=== PATIENT | male | born 1995 | race Asian ===

== ENCOUNTER → 2025-05-20 | Emergency (ER) | payer MEDICAID ==
[~2025-05-20] VITALS: Ht 165.1 cm; Wt 59.1 kg
[~2025-05-20] MED LIST: HYDR-4268 TP
[2025-05-20 13:50] VITALS: TEMP 98.2
[2025-05-20 18:51] LABS: PLATELET COUNT (AUTO) 261 K/uL (150-450); RED BLOOD CELL COUNT(AUTO) 5.01 MIL/uL (4.50-5.90); RED CELL DISTRIBUTION WIDTH 12.3 % (11.5-14.5); WHITE BLOOD COUNT (AUTO) 6.5 K/uL (4.5-11.0)
[2025-05-20 19:02] LABS: CALCIUM, TOTAL 9.3 mg/dL (8.8-10.5); CREATININE 1.22 mg/dL (0.60-1.30); GLOMERULAR FILTR. RATE CALC > 60 mL/min (>60); GLUCOSE,RANDOM 91 mg/dL (70-110); SODIUM SERUM 136 mmol/L (136-145); UREA NITROGEN, BLOOD 13 mg/dL (7-18)
[2025-05-20 20:17] VITALS: BP 115/83; PULSE 78; RESP 16; O2SAT 98
== END | disposition still patient (30) ==
LOC: EMS 13:42
DX: L23.1 Allergic contact dermatitis due to adhesives (principal); R21 Rash and other nonspecific skin eruption; Z98.890 Other specified postprocedural states; Z91.013 Allergy to seafood
CPT/HCPCS: 80048; 85025; 99283